=== PATIENT | male | born 1985 | race Caucasian/White ===

== ENCOUNTER 2019-06-12 10:05 | Emergency (ER) | payer OTHER ==
[~2019-06-12] VITALS: Ht 175.3 cm; Wt 70.5 kg
[~2019-06-12 10:05] MED LIST: CEPH-443 PO; IBUP-1561 PO
[2019-06-12 10:09] VITALS: BP 123/70; PULSE 97; RESP 17; Ht 175.3 cm; Wt 70.5 kg
[2019-06-12] MEDS ORDERED: HYDROCODONE/APAP (10/325) TAB PO ONE (11:00)
[2019-06-12] MEDS ORDERED: LIDOCAINE 1% (MDV) 20 ML INJ SC ONE (11:00)
[2019-06-12] MEDS ORDERED: DIPHTH/TET/ACEL PERTUSS (ADULT) 0.5 ML VIAL IM* ONE (11:00)
== END 2019-06-12 12:21 | disposition home or self-care (01) ==
LOC: FTE 10:05
DX: S61.213A Laceration without foreign body of left middle finger without damage to nail, initial encounter (principal); F17.210 Nicotine dependence, cigarettes, uncomplicated; W26.0XXA Contact with knife, initial encounter; Y92.9 Unspecified place or not applicable; Z23 Encounter for immunization
CPT/HCPCS: 12002; 73130; 90471; 90715; Z7502; Z7610